=== PATIENT | female | born 1945 | race Caucasian/White ===

== ENCOUNTER 2020-10-17 08:27 | Outpatient (CLI) | payer MEDICARE, OTHER | END 2020-10-17 23:59 | disposition home or self-care (01) | LOC: ROC 08:27 | PROVIDERS: ATTEND Radiology Radiation Oncology | DX: C54.1 Malignant neoplasm of endometrium (principal) | CPT/HCPCS: G0463 ==

== ENCOUNTER 2020-12-03 09:55 | Outpatient (CLI) | payer MEDICARE, OTHER | END 2020-12-03 23:59 | disposition home or self-care (01) | LOC: ROC 09:55 | PROVIDERS: ATTEND Radiology Radiation Oncology | DX: Z08 Encounter for follow-up examination after completed treatment for malignant neoplasm (principal); C54.1 Malignant neoplasm of endometrium | CPT/HCPCS: G0463 ==